=== PATIENT | female | born 1970 | race African-American/Black ===

== ENCOUNTER 2021-08-11 13:13 | Observation (INO) | payer MEDICARE, MEDICAID ==
[2021-08-11 13:57] LABS: #Eosinphils 0.1 10x3/uL (0.0-0.5); #Monocytes 0.7 10x3/uL (0.0-1.1); #Neutrophils 5.2 10x3/uL (1.5-8.4); %Basophils 0.2 % (0.0-2.0); %Eosinophils 1.7 % (0.0-6.0); %Lymphocytes 25.1 % (18.0-47.0); %Neutrophils 64.6 % (40.0-75.0); Mean Corpuscular HGB CONC 32.7 g/dL (32.0-36.0); Mean Corpuscular Hemoglobin 29.8 pg (27.0-33.0); Mean Corpuscular Volume 91.1 fl (81.6-98.3); Mean Platelet Volume 12.2 fl (7.4-10.4); Platelet Count 214 10x3/uL (150-450); RBC Distribution Width 12.5 % (11.5-14.5); Red Blood Cell (RBC) Count 3.02 10x6/uL (3.90-5.03); White Blood Cell (WBC) Count 8.1 10x3/uL (3.5-10.5)
[2021-08-11 14:22] LABS: ALT (SGPT) 8 U/L (8-55); AST (SGOT) 10 U/L (5-34); Albumin 3.5 g/dL (3.5-5.0); Alkaline Phosphatase 104 U/L (40-110); Anion Gap 15 mmol/L (10-20); BUN (Urea Nitrogen) 37 mg/dL (9.8-20.1); Bilirubin, Total 0.2 mg/dL (0.2-1.2); Calc. Creatinine Clearance 0 mL/min (70-130); Calcium 8.6 mg/dL (7.8-10.44); Carbon Dioxide 19 mmol/L (22-29); Chloride 108 mmol/L (98-107); Globulin 3.5 g/dL (2.4-3.5); Glucose 403 mg/dL (70-105); Potassium 4.9 mmol/L (3.5-5.1); Sodium 137 mmol/L (136-145)
[2021-08-11 17:38] LABS: Actual Bicarbonate (HCO3v) 24 mEq/L (22-28); Base Excess -2.5 mEq/L (-2.0 to +3.0); Calcium, Ionized (venous) 1.17 mmol/L (1.16-1.32); Chloride (VBG) 107 mmol/L (98-106); Hemoglobin (Hb) 10.1 g/dL (11.7-16.0); Potassium (VBG) 4.51 mmol/L (3.70-5.30); Puncture Site Other Site; Sodium 138.6 mmol/L (133-146); pH (venous) 7.31 (7.32-7.43)
[2021-08-11 17:49] LABS: Troponin I Less than 0.010 ng/mL (< 0.028)
[2021-08-11] MEDS ORDERED: Acetaminophen 325 MG TAB PO PRN (19:31)
[2021-08-11] MEDS ORDERED: Bisacodyl 5 MG TAB PO PRN (19:31)
[2021-08-11] MEDS ORDERED: Senokot S 8.6-50 MG TAB PO PRN (19:31)
[2021-08-11] MEDS ORDERED: Ondansetron PF 4 MG/2 ML Vial IVP PRN (19:31)
[2021-08-11] MEDS ORDERED: Dextrose 5% in Water 1,000 ML IV PRN (19:37)
[2021-08-11] MEDS ORDERED: Dextrose 50% Abboject 50 ML SYRINGE SLOW IVP PRN (19:37)
[2021-08-11 21:21] LABS: Troponin I Less than 0.010 ng/mL (< 0.028)
[2021-08-11 23:36] VITALS: BMI 40.3
[2021-08-12] MEDS ORDERED: Lantus 1000 UNITS/10 ML VIAL SC SCH (00:30)
[2021-08-12] MEDS ORDERED: hydrALAZINE 20 MG/ML VIAL SLOW IVP PRN (00:54)
[2021-08-12 04:35] LABS: #Eosinphils 0.2 10x3/uL (0.0-0.5); #Monocytes 0.9 10x3/uL (0.0-1.1); %Basophils 0.4 % (0.0-2.0); %Eosinophils 2.5 % (0.0-6.0); %Lymphocytes 33.7 % (18.0-47.0); %Monocytes 11.2 % (0.0-10.0); %Neutrophils 52.1 % (40.0-75.0); Hemoglobin 8.1 g/dL (12.0-15.5); Mean Corpuscular HGB CONC 31.6 g/dL (32.0-36.0); Mean Corpuscular Hemoglobin 29.5 pg (27.0-33.0); Mean Corpuscular Volume 93.1 fl (81.6-98.3); Mean Platelet Volume 12.8 fl (7.4-10.4); Platelet Count 204 10x3/uL (150-450); RBC Distribution Width 12.6 % (11.5-14.5); Red Blood Cell (RBC) Count 2.75 10x6/uL (3.90-5.03); White Blood Cell (WBC) Count 7.7 10x3/uL (3.5-10.5)
[2021-08-12 04:51] LABS: ALT (SGPT) 6 U/L (8-55); AST (SGOT) 8 U/L (5-34); Albumin 3.1 g/dL (3.5-5.0); Alkaline Phosphatase 95 U/L (40-110); Anion Gap 14 mmol/L (10-20); BUN (Urea Nitrogen) 37 mg/dL (9.8-20.1); Bilirubin, Total 0.2 mg/dL (0.2-1.2); Calc. Creatinine Clearance 25 mL/min (70-130); Calcium 8.5 mg/dL (7.8-10.44); Carbon Dioxide 20 mmol/L (22-29); Cardiac Risk 10.6 (Less than 4.5); Chloride 112 mmol/L (98-107); Cholesterol 297 mg/dl (< 200 Desired); Globulin 3.1 g/dL (2.4-3.5); Glucose 302 mg/dL (70-105); HDL Cholesterol 28 mg/dL (>60 Neg Risk); Magnesium 1.6 mg/dL (1.6-2.6); Phosphorus 4.6 mg/dL (2.3-4.7); Potassium 4.5 mmol/L (3.5-5.1); Protein, Total 6.2 g/dL (6.0-8.3); Sodium 141 mmol/L (136-145); Triglycerides 517 mg/dL (Less than 150)
[2021-08-12 05:04] LABS: LDL Cholesterol, Calculated 166 mg/dL
[2021-08-12] MEDS: HumaLOG 300 UNITS/3 ML VIAL SC PRN ×4 (05:58→20:36)
[2021-08-12 09:22] LABS: Hemoglobin A1c 9.9 % (4.0-6.0)
[2021-08-12] MEDS ORDERED: traMADol HCl 50 MG TAB PO PRN ×2 (10:23→16:45)
[2021-08-12] MEDS ORDERED: NIFEdipine XL 30 MG TAB PO SCH (12:15)
[2021-08-12] MEDS ORDERED: Melatonin 3 MG TAB PO PRN (16:38)
[2021-08-12] MEDS ORDERED: Senokot S 8.6-50 MG TAB PO PRN (16:45)
[2021-08-12] MEDS: Gabapentin 300 MG CAP PO SCH (20:29)
[2021-08-12] MEDS: hydrALAZINE 25 MG TAB PO SCH (20:30)
[2021-08-12] MEDS: traMADol HCl 50 MG TAB PO PRN (20:31)
[2021-08-12] MEDS: Lantus 1000 UNITS/10 ML VIAL SC SCH (20:47)
[2021-08-13] MEDS: HumaLOG 300 UNITS/3 ML VIAL SC PRN ×4 (05:37→21:16)
[2021-08-13 07:24] LABS: #Eosinphils 0.2 10x3/uL (0.0-0.5); #Monocytes 0.6 10x3/uL (0.0-1.1); #Neutrophils 4.1 10x3/uL (1.5-8.4); %Basophils 0.5 % (0.0-2.0); %Eosinophils 2.3 % (0.0-6.0); %Lymphocytes 32.6 % (18.0-47.0); %Neutrophils 56.3 % (40.0-75.0); Hemoglobin 8.8 g/dL (12.0-15.5); Mean Corpuscular HGB CONC 31.8 g/dL (32.0-36.0); Mean Corpuscular Hemoglobin 29.4 pg (27.0-33.0); Mean Corpuscular Volume 92.6 fl (81.6-98.3); Mean Platelet Volume 12.8 fl (7.4-10.4); Platelet Count 208 10x3/uL (150-450); RBC Distribution Width 12.4 % (11.5-14.5); Red Blood Cell (RBC) Count 2.99 10x6/uL (3.90-5.03); White Blood Cell (WBC) Count 7.3 10x3/uL (3.5-10.5)
[2021-08-13 07:50] LABS: ALT (SGPT) 7 U/L (8-55); AST (SGOT) 9 U/L (5-34); Albumin 3.1 g/dL (3.5-5.0); Alkaline Phosphatase 100 U/L (40-110); Anion Gap 14 mmol/L (10-20); BUN (Urea Nitrogen) 30 mg/dL (9.8-20.1); Bilirubin, Total 0.2 mg/dL (0.2-1.2); Calc. Creatinine Clearance 27 mL/min (70-130); Calcium 8.7 mg/dL (7.8-10.44); Carbon Dioxide 21 mmol/L (22-29); Chloride 110 mmol/L (98-107); Globulin 3.4 g/dL (2.4-3.5); Glucose 204 mg/dL (70-105); Magnesium 1.5 mg/dL (1.6-2.6); Phosphorus 4.7 mg/dL (2.3-4.7); Potassium 4.2 mmol/L (3.5-5.1); Protein, Total 6.5 g/dL (6.0-8.3); Sodium 141 mmol/L (136-145)
[2021-08-13] MEDS ORDERED: FLU VACC QS2021-22(6MOS UP)/PF 60 MCG/0.5 ML SYRINGE IM ONE (09:00)
[2021-08-13] MEDS: traMADol HCl 50 MG TAB PO PRN ×2 (09:23→18:18)
[2021-08-13] MEDS: NIFEdipine XL 30 MG TAB PO SCH (09:25)
[2021-08-13] MEDS: risperiDONE 1 MG TAB PO SCH (09:25)
[2021-08-13] MEDS: hydrALAZINE 25 MG TAB PO SCH ×3 (09:25→21:28)
[2021-08-13] MEDS ORDERED: Meclizine HCl 12.5 MG TAB PO SCH (11:45)
[2021-08-13] MEDS: Lantus 1000 UNITS/10 ML VIAL SC SCH (21:17)
[2021-08-13] MEDS: Gabapentin 300 MG CAP PO SCH (21:27)
[2021-08-13] MEDS: Meclizine HCl 12.5 MG TAB PO SCH (21:29)
[2021-08-14 05:30] LABS: #Eosinphils 0.2 10x3/uL (0.0-0.5); #Monocytes 0.7 10x3/uL (0.0-1.1); #Neutrophils 3.9 10x3/uL (1.5-8.4); %Basophils 0.4 % (0.0-2.0); %Eosinophils 2.6 % (0.0-6.0); %Lymphocytes 33.5 % (18.0-47.0); %Monocytes 9.3 % (0.0-10.0); %Neutrophils 53.9 % (40.0-75.0); Hemoglobin 8.9 g/dL (12.0-15.5); Mean Corpuscular HGB CONC 32.6 g/dL (32.0-36.0); Mean Corpuscular Hemoglobin 30.3 pg (27.0-33.0); Mean Corpuscular Volume 92.9 fl (81.6-98.3); Mean Platelet Volume 12.4 fl (7.4-10.4); Platelet Count 225 10x3/uL (150-450); RBC Distribution Width 12.8 % (11.5-14.5); Red Blood Cell (RBC) Count 2.94 10x6/uL (3.90-5.03); White Blood Cell (WBC) Count 7.3 10x3/uL (3.5-10.5)
[2021-08-14 05:50] LABS: ALT (SGPT) 7 U/L (8-55); AST (SGOT) 9 U/L (5-34); Albumin 3.1 g/dL (3.5-5.0); Alkaline Phosphatase 97 U/L (40-110); Anion Gap 15 mmol/L (10-20); BUN (Urea Nitrogen) 31 mg/dL (9.8-20.1); Bilirubin, Total 0.2 mg/dL (0.2-1.2); Calc. Creatinine Clearance 26 mL/min (70-130); Calcium 8.5 mg/dL (7.8-10.44); Carbon Dioxide 20 mmol/L (22-29); Chloride 109 mmol/L (98-107); Globulin 3.4 g/dL (2.4-3.5); Glucose 272 mg/dL (70-105); Magnesium 1.5 mg/dL (1.6-2.6); Potassium 4.2 mmol/L (3.5-5.1); Protein, Total 6.5 g/dL (6.0-8.3); Sodium 140 mmol/L (136-145)
[2021-08-14] MEDS: HumaLOG 300 UNITS/3 ML VIAL SC PRN (06:17)
[2021-08-14] MEDS: hydrALAZINE 25 MG TAB PO SCH (08:42)
[2021-08-14] MEDS: Meclizine HCl 12.5 MG TAB PO SCH (08:45)
[2021-08-14] MEDS: NIFEdipine XL 30 MG TAB PO SCH (08:45)
[2021-08-14] MEDS: risperiDONE 1 MG TAB PO SCH (08:45)
[2021-08-14 12:09] VITALS: BP 152/92; TEMP 97.9
== END 2021-08-14 13:02 | disposition home or self-care (01) ==
LOC: CSHERS 13:13 → INTOOBSV 18:45 → CSHTELE 18:45
PROVIDERS: ADMIT Family Medicine; ATTEND Internal Medicine
DX: R55 Syncope and collapse (principal); E11.22 Type 2 diabetes mellitus with diabetic chronic kidney disease; I12.9 Hypertensive chronic kidney disease with stage 1 through stage 4 chronic kidney disease, or unspecified chronic kidney disease; N18.4 Chronic kidney disease, stage 4 (severe); Z79.899 Other long term (current) drug therapy; Z79.4 Long term (current) use of insulin; Z86.16 Personal history of COVID-19; Z90.710 Acquired absence of both cervix and uterus; E78.5 Hyperlipidemia, unspecified; D64.9 Anemia, unspecified; R07.89 Other chest pain; W19.XXXA Unspecified fall, initial encounter
CPT/HCPCS: 71045; 73610; 80053 ×4; 80061; 82805; 82962 ×4; 83036; 83735 ×3; 83880; 84100 ×3; 84484 ×2; 85025 ×4; 93005 ×2; 93306; 96374; 97116 ×2; 97139; 97530; 99285; G0378 ×5; 36415; 36416; 93010; J0360; J1815

== ENCOUNTER 2021-12-24 00:14 | Emergency (ER) | payer MEDICARE, OTHER ==
[2021-12-24] MEDS ORDERED: Acetaminophen 500 MG TAB ONE (01:01)
== END 2021-12-24 01:00 | disposition home or self-care (01) ==
LOC: CSHERS 00:14
DX: E11.42 Type 2 diabetes mellitus with diabetic polyneuropathy (principal); I10 Essential (primary) hypertension; E78.00 Pure hypercholesterolemia, unspecified; I13.0 Hypertensive heart and chronic kidney disease with heart failure and stage 1 through stage 4 chronic kidney disease, or unspecified chronic kidney disease; I50.9 Heart failure, unspecified; E11.22 Type 2 diabetes mellitus with diabetic chronic kidney disease; N18.4 Chronic kidney disease, stage 4 (severe); M10.9 Gout, unspecified; Z79.4 Long term (current) use of insulin; Z79.899 Other long term (current) drug therapy
CPT/HCPCS: 99283

== ENCOUNTER 2022-01-24 21:25 | Emergency (ER) | payer OTHER, MEDICAID ==
[2022-01-24] MEDS ORDERED: Gabapentin 300 MG CAP ONE (23:14)
[2022-01-24] MEDS ORDERED: Amitriptyline HCl 25 MG TAB PO SCH (23:30)
== END 2022-01-24 23:29 | disposition home or self-care (01) ==
LOC: CSHERS 21:25
DX: E11.40 Type 2 diabetes mellitus with diabetic neuropathy, unspecified (principal); E78.00 Pure hypercholesterolemia, unspecified; I11.0 Hypertensive heart disease with heart failure; I50.9 Heart failure, unspecified
CPT/HCPCS: 99283

== ENCOUNTER 2022-07-01 02:46 | Emergency (ER) | payer OTHER ==
[2022-07-01] MEDS ORDERED: Ondansetron ODT 4 MG TAB ONE (04:01)
[2022-07-01] MEDS ORDERED: HYDROcodone/Acetaminophen 5/325 mg Tablet ONE (04:01)
[2022-07-01 04:26] LABS: ALT (SGPT) 8 U/L (8-55); AST (SGOT) 12 U/L (5-34); Albumin 3.6 g/dL (3.5-5.0); Alkaline Phosphatase 70 U/L (40-110); Anion Gap 17 mmol/L (10-20); BUN (Urea Nitrogen) 32 mg/dL (9.8-20.1); Bilirubin, Total 0.3 mg/dL (0.2-1.2); Calc. Creatinine Clearance 0 mL/min (70-130); Calcium 8.9 mg/dL (7.8-10.44); Carbon Dioxide 27 mmol/L (22-29); Chloride 97 mmol/L (98-107); Estimated GFR 5; Globulin 3.4 g/dL (2.4-3.5); Glucose 231 mg/dL (70-105); Potassium 3.9 mmol/L (3.5-5.1); Sodium 137 mmol/L (136-145)
[2022-07-01 04:41] LABS: #Basophils 0.1 10x3/uL (0.0-0.2); #Eosinphils 0.4 10x3/uL (0.0-0.5); #Monocytes 1.3 10x3/uL (0.0-1.1); #Neutrophils 5.6 10x3/uL (1.5-8.4); %Basophils 0.6 % (0.0-2.0); %Eosinophils 3.2 % (0.0-6.0); %Lymphocytes 33.6 % (18.0-47.0); %Monocytes 11.8 % (0.0-10.0); %Neutrophils 50.4 % (40.0-75.0); Mean Corpuscular HGB CONC 33.5 g/dL (32.0-36.0); Mean Corpuscular Hemoglobin 29.9 pg (27.0-33.0); Mean Corpuscular Volume 89.4 fl (81.6-98.3); Platelet Count 227 10x3/uL (150-450); Red Blood Cell (RBC) Count 3.01 10x6/uL (3.90-5.03)
== END 2022-07-01 06:10 | disposition home or self-care (01) ==
LOC: CSHERS 02:46
DX: M54.32 Sciatica, left side (principal); M25.552 Pain in left hip; E11.9 Type 2 diabetes mellitus without complications; I10 Essential (primary) hypertension; E78.5 Hyperlipidemia, unspecified; M10.9 Gout, unspecified
CPT/HCPCS: 36415; 36416; 72170; 80053; 85025; 85652; 86140; Q0162

== ENCOUNTER 2022-08-05 18:33 | Emergency (ER) | payer MEDICARE, OTHER ==
[2022-08-05] MEDS ORDERED: Acetaminophen 325 MG TAB ONE (20:40)
[2022-08-05] MEDS ORDERED: Amitriptyline HCl 10 MG TAB PO SCH (20:45)
[2022-08-05] MEDS ORDERED: Gabapentin 400 MG CAP PO SCH (20:45)
== END 2022-08-05 20:22 | disposition home or self-care (01) ==
LOC: CSHERS 18:33
DX: E11.40 Type 2 diabetes mellitus with diabetic neuropathy, unspecified (principal); I10 Essential (primary) hypertension; E78.5 Hyperlipidemia, unspecified; Z79.899 Other long term (current) drug therapy
CPT/HCPCS: 99283

== ENCOUNTER 2023-06-19 21:18 | Emergency (ER) | payer OTHER ==
[2023-06-20] MEDS ORDERED: HYDROcodone/Acetaminophen 5/325 mg Tablet ONE (00:24)
[2023-06-20] MEDS ORDERED: Gabapentin 400 MG CAP PO SCH (00:30)
== END 2023-06-20 00:55 | disposition home or self-care (01) ==
LOC: CSHERS 21:18
DX: E11.40 Type 2 diabetes mellitus with diabetic neuropathy, unspecified (principal); M79.604 Pain in right leg; M79.605 Pain in left leg; E78.5 Hyperlipidemia, unspecified; I10 Essential (primary) hypertension; Z79.4 Long term (current) use of insulin; Z79.899 Other long term (current) drug therapy
CPT/HCPCS: 99283

== ENCOUNTER 2024-08-17 00:23 | Emergency (ER) | payer MEDICARE, MEDICAID ==
[2024-08-17] MEDS ORDERED: HYDROcodone/Acetaminophen 5/325 mg Tablet ONE (01:24)
== END 2024-08-17 01:37 | disposition home or self-care (01) ==
LOC: CSHERS 00:23
DX: E11.42 Type 2 diabetes mellitus with diabetic polyneuropathy (principal); E11.40 Type 2 diabetes mellitus with diabetic neuropathy, unspecified; E78.5 Hyperlipidemia, unspecified; I10 Essential (primary) hypertension; Z79.899 Other long term (current) drug therapy
CPT/HCPCS: 99283

== ENCOUNTER 2025-06-05 13:47 | Emergency (ER) | payer OTHER | END 2025-06-05 14:53 | disposition home or self-care (01) | LOC: CSHERS 13:47 | DX: E11.42 Type 2 diabetes mellitus with diabetic polyneuropathy (principal); I10 Essential (primary) hypertension | CPT/HCPCS: 99282 ==

== ENCOUNTER 2025-06-17 00:29 | Emergency (ER) | payer OTHER ==
[2025-06-17 01:43] LABS: #Basophils 0.05 10x3/uL (0.0-0.2); #Eosinophils 0.96 10x3/uL (0.0-0.5); #Monocytes 1.33 10x3/uL (0.0-1.1); #Neutrophils 5.47 10x3/uL (1.5-8.4); %Basophils 0.5 % (0.0-2.0); %Eosinophils 9.5 % (0.0-6.0); %Lymphocytes 22.9 % (18.0-47.0); %Monocytes 13.1 % (0.0-10.0); %Neutrophils 53.8 % (40.0-75.0); Hematocrit 25.7 % (34.9-44.5); Hemoglobin 8.2 g/dL (12.0-15.5); Mean Corpuscular Hemoglobin 30.8 pg (27.0-33.0); Mean Corpuscular Volume 96.6 fL (81.6-98.3); Platelet Count 295 10x3/uL (150-450); Red Blood Cell (RBC) Count 2.66 10x6/uL (3.90-5.03); White Blood Cell (WBC) Count 10.15 10x3/uL (3.5-10.5)
[2025-06-17 02:00] LABS: Glucose, Urine (Dipstick) Normal (Negative); Leukocyte Negative (Negative); Protein, Urine (Dipstick) 100 mg/dl (Neg-Trace); Specific Gravity, Urine 1.015 (1.005-1.030)
[2025-06-17 02:05] LABS: ALT (SGPT) 8 U/L (Less than 34); AST (SGOT) 14 U/L (11-34); Albumin 3.2 g/dL (3.1-4.5); Alkaline Phosphatase 89 U/L (40-110); Anion Gap 19 mmol/L (10-20); BUN (Urea Nitrogen) 32 mg/dL (9.8-20.1); Bilirubin, Total 0.2 mg/dL (0.3-1.2); Calc. Creatinine Clearance 0 mL/min (70-130); Calcium 8.2 mg/dL (7.8-10.44); Carbon Dioxide 26 mmol/L (22-29); Chloride 103 mmol/L (98-107); Globulin 3.5 g/dL (2.4-3.5); Glucose 107 mg/dL (70-105); Magnesium 2.0 mg/dL (1.6-2.6); Potassium 4.5 mmol/L (3.5-5.1); Sodium 143 mmol/L (136-145)
[2025-06-17 02:06] LABS: Bacteria/HPF None Seen HPF (None Seen); CAUTI Indications for Culture Pelvic or flank pain; RBC/HPF 0-3 HPF (0-3); WBC/HPF 0-3 HPF (0-3)
[2025-06-17 02:07] LABS: Urine Culture Reflex No No
[2025-06-17 02:12] LABS: Troponin I 0.025 ng/mL (< 0.028)
[2025-06-17] MEDS ORDERED: HYDROcodone/Acetaminophen 10/325 mg Tablet ONE (02:33)
== END 2025-06-17 03:10 | disposition home or self-care (01) ==
LOC: CSHERS 00:29
DX: M53.3 Sacrococcygeal disorders, not elsewhere classified (principal); G89.29 Other chronic pain; M54.50 Low back pain, unspecified; J18.9 Pneumonia, unspecified organism; I12.0 Hypertensive chronic kidney disease with stage 5 chronic kidney disease or end stage renal disease; N18.6 End stage renal disease; Z99.2 Dependence on renal dialysis
CPT/HCPCS: 36415; 72128; 72131; 80053; 81001; 83735; 84484; 85025; 93005

== ENCOUNTER 2025-07-26 15:41 | Emergency (ER) | payer OTHER ==
[2025-07-26] MEDS ORDERED: HYDROcodone/Acetaminophen 10/325 mg Tablet ONE (18:03)
[2025-07-26 20:20] LABS: #Basophils 0.04 10x3/uL (0.0-0.2); #Eosinophils 0.26 10x3/uL (0.0-0.5); #Monocytes 1.09 10x3/uL (0.0-1.1); #Neutrophils 4.69 10x3/uL (1.5-8.4); %Basophils 0.5 % (0.0-2.0); %Eosinophils 3.0 % (0.0-6.0); %Lymphocytes 29.6 % (18.0-47.0); %Monocytes 12.6 % (0.0-10.0); %Neutrophils 54.2 % (40.0-75.0); Hematocrit 28.8 % (34.9-44.5); Hemoglobin 9.6 g/dL (12.0-15.5); Mean Corpuscular Hemoglobin 30.8 pg (27.0-33.0); Mean Corpuscular Volume 92.3 fL (81.6-98.3); Platelet Count 204 10x3/uL (150-450); Red Blood Cell (RBC) Count 3.12 10x6/uL (3.90-5.03); White Blood Cell (WBC) Count 8.65 10x3/uL (3.5-10.5)
[2025-07-26 20:37] LABS: ALT (SGPT) Less than 4 U/L (Less than 34); AST (SGOT) 12 U/L (11-34); Albumin 3.2 g/dL (3.1-4.5); Alkaline Phosphatase 85 U/L (40-110); Anion Gap 16 mmol/L (10-20); BUN (Urea Nitrogen) 23 mg/dL (9.8-20.1); Bilirubin, Total 0.3 mg/dL (0.3-1.2); Calc. Creatinine Clearance 0 mL/min (70-130); Calcium 8.5 mg/dL (7.8-10.44); Carbon Dioxide 29 mmol/L (22-29); Chloride 100 mmol/L (98-107); Globulin 3.7 g/dL (2.4-3.5); Glucose 96 mg/dL (70-105); Potassium 3.1 mmol/L (3.5-5.1); Sodium 142 mmol/L (136-145)
[2025-07-26 20:38] LABS: Troponin I 0.024 ng/mL (< 0.028)
== END 2025-07-26 21:20 | disposition home or self-care (01) ==
LOC: CSHERS 15:41
DX: M54.6 Pain in thoracic spine (principal); M25.511 Pain in right shoulder; G89.29 Other chronic pain; I12.0 Hypertensive chronic kidney disease with stage 5 chronic kidney disease or end stage renal disease; E11.40 Type 2 diabetes mellitus with diabetic neuropathy, unspecified; E11.22 Type 2 diabetes mellitus with diabetic chronic kidney disease; N18.6 End stage renal disease; Z99.2 Dependence on renal dialysis
CPT/HCPCS: 71045; 80053; 84484; 85025; 85046; 93005; 96374